=== PATIENT | female | born 1975 | race African-American/Black ===

== ENCOUNTER 2017-08-07 09:50 | Emergency (ER) | payer OTHER ==
[~2017-08-07] VITALS: Ht 165.1 cm; Wt 99.8 kg
[~2017-08-07 09:50] MED LIST: ALDACTONE25 MG PO; CLA10 PO; CYCLOBENZAPRINE5 MG PO; GLU500 PO; METFORMIN ER500 M1 PO
[2017-08-07 10:04] VITALS: Ht 165.1 cm; Wt 99.8 kg
[2017-08-07 10:51] LABS: microscopic required? NO
[2017-08-07 11:25] LABS: CALCIUM 8.7 mg/dL (8.5-10.1); CARBON DIOXIDE 26.5 mmol/L (21-32); CHLORIDE SERUM 106 mmol/L (98-107); CREATININE SERUM 0.8 mg/dL (0.6-1.0); GFR1 > 60 mL/min; GLUCOSE SERUM 163 mg/dL (74-106); SODIUM SERUM 139 mmol/L (136-145)
[2017-08-07 11:29] LABS: ALBUMIN 3.6 g/dL (3.4-5.0); ALKALINE PHOSPHATASE 85 U/L (46-116); ALT/SGPT 21 U/L (14-59); AST/SGOT 14 U/L (15-37); BILIRUBIN TOTAL 0.5 mg/dL (0.20-1.00); LIPASE 168 IU/L (73-393); TOTAL PROTEIN, SERUM 7.6 g/dL (6.4-8.2)
[2017-08-07 11:33] LABS: BASOPHIL % 0.6 % (0-2); PLATELET COUNT 270 x10^3mcL (130-400); RED CELL DISTRIBUTION WIDTH 13.3 % (11.5-14.5)
[2017-08-07 11:37] LABS: UA SPECIFIC GRAVITY >=1.030 (1.005-1.035); urine erythrocyte NEGATIVE (NEGATIVE)
[2017-08-07 13:30] VITALS: BP 112/71
== END 2017-08-07 13:30 | disposition home or self-care (01) ==
LOC: ED 09:50
PROVIDERS: Emergency Medicine
DX: O26.891 Other specified pregnancy related conditions, first trimester (principal); E11.9 Type 2 diabetes mellitus without complications; R10.32 Left lower quadrant pain; Z3A.00 Weeks of gestation of pregnancy not specified
CPT/HCPCS: 36415; Q0092

== ENCOUNTER 2017-08-09 09:24 | Emergency (ER) | payer OTHER ==
[~2017-08-09] VITALS: Ht 165.1 cm; Wt 101.2 kg
[2017-08-09 09:32] VITALS: Ht 165.1 cm; Wt 101.2 kg
[2017-08-09 11:00] VITALS: BP 119/77
== END 2017-08-09 11:00 | disposition home or self-care (01) ==
LOC: ED 09:24
DX: O20.0 Threatened abortion (principal); Z3A.00 Weeks of gestation of pregnancy not specified